=== PATIENT | female | born 1990 | race Caucasian/White ===

== ENCOUNTER 2023-06-05 23:09 | Emergency (ER) | payer SELFPAY ==
[2023-06-05] MEDS ORDERED: Famotidine 20 MG Tab PO ONE (23:32)
[2023-06-05] MEDS ORDERED: Cetirizine 10 MG Tab PO ONE (23:32)
[2023-06-06] MEDS ORDERED: Dexamethasone 4 MG Tab PO ONE (00:50)
== END 2023-06-06 01:25 | disposition home or self-care (01) ==
LOC: MW.ED 23:09
DX: L50.9 Urticaria, unspecified (principal); Z86.16 Personal history of COVID-19; Z72.0 Tobacco use
CPT/HCPCS: 82947; 99283; A9270; J8540

== ENCOUNTER 2024-01-10 12:05 | Emergency (ER) | payer OTHER ==
[2024-01-10] MEDS: Ibuprofen 800 MG Tab PO ONE (14:01)
== END 2024-01-10 14:50 | disposition home or self-care (01) ==
LOC: MW.ED 12:05
DX: M79.671 Pain in right foot (principal); Z75.8 Other problems related to medical facilities and other health care
CPT/HCPCS: 73610; 73620; 73630; 99283; A9270